=== PATIENT | female | born 1970 | race Caucasian/White ===

== ENCOUNTER 2024-08-15 09:30 | Outpatient (RCR) | payer OTHER, SELFPAY ==
--- NOTE | 2024-08-15 14:32 | PC.NURSE ---
Nick started PHP program today. At around 10:30 Dr. Flores Aguilar stated a patient is outside on the ground. I went outside and saw Riri on the ground surrounded by [facility] staff from another department of the hospital who stated they called an ambulance. Patient reports that she fell and injured her L arm and elbow. Fall was not witnessed by this tag writer. She denied hitting her head. Out patient response team was called. Security was present. Nick was advised not to get up until the ambulance arrived. Ambulance arrived and patient got on a stretcher and was sent to [facility] ER for further evaluation. Staff present included Dr Aguilar, Homer Palacios, Kristie Olmstead, [facility] staff person from Patient Experience, Chelo Bell Joshua Bettgenhauser, and the outpatient response team members.
--- NOTE | 2024-08-16 09:18 | HO.IOP ---
IOP Admin, Esther, informed the team that Nick left her a voicemail stating that she will not be returning to the program. IOP staff member contacted her on multiple occasions to gather the remainder of the discharge information but she did not answer her phone and her voicemail was full so we were unable to leave a message asking her to contact the program back.
== END 2024-08-15 23:59 | disposition home or self-care (01) ==
LOC: HO.IOP 09:30
PROVIDERS: Visit Provider Psychiatry & Neurology Psychiatry
DX: F33.2 Major depressive disorder, recurrent severe without psychotic features (principal); F41.1 Generalized anxiety disorder
CPT/HCPCS: 90791; S9480

== ENCOUNTER 2024-08-15 10:59 | Emergency (ER) | payer OTHER, SELFPAY ==
--- NOTE | ~2024-08-15 | XR_ITS ---
EXAMINATION: XR FOREARM, LEFT CLINICAL INFORMATION: Fall. Pain. COMPARISON: None available. TECHNIQUE: AP and lateral views of the left forearm were obtained. FINDINGS: The proximal forearm and elbow are not well seen. The fracture of the olecranon is better demonstrated on the left elbow radiographs obtained today. See separate report. No additional fracture of the mid or distal shaft of the radius or ulna or the visualized carpal bones. XR/XR forearm LT 2V IMPRESSION: Known fracture of the olecranon on the left elbow radiographs. No additional fracture of the middle distal shaft of the left forearm. Electronically signed by: Alli Nuñez MD 08/15/2024 03:01 PM EDT
--- NOTE | ~2024-08-15 | XR_ITS ---
EXAMINATION: XR HUMERUS, LEFT CLINICAL INFORMATION: Pain after falling COMPARISON: None available. TECHNIQUE: AP and lateral views of the left humerus. FINDINGS: Chip fracture off the distal humerus, best seen on the elbow radiograph, likely off the olecranon. The remainder of the humerus is intact. Moderate soft tissue swelling overlies the olecranon. XR/XR humerus LT IMPRESSION: Chip fracture of olecranon, with cephalad retraction likely due to fragment attachments of the triceps tendon. Electronically signed by: Faisal Urbina MD 08/15/2024 03:19 PM EDT
--- NOTE | ~2024-08-15 | XR_ITS ---
EXAMINATION: XR ELBOW, LEFT CLINICAL INFORMATION: Fall, elbow pain COMPARISON: None available. TECHNIQUE: Two views of the left elbow. FINDINGS: There is a comminuted and displaced fracture of the olecranon with associated soft tissue swelling and joint effusion. XR/XR elbow LT min 3V IMPRESSION: Comminuted and displaced fracture of the olecranon with associated soft tissue swelling and joint effusion. Electronically signed by: Lukasz Goldberg MD 08/15/2024 01:02 PM EDT
[2024-08-15 11:13] VITALS: BP 137/77; BP 138/74; PULSE 72; PULSE 90; RESP 18; TEMP 36.4; O2SAT 95; O2SAT 97; BMI 29.3
--- NOTE | 2024-08-15 12:03 | ED_ITS ---
HPI - Fall General Chief Complaint: Fall Stated Complaint: FALL,L ELBOW/RIB PAIN PER EMS Time Seen by Provider: 08/15/24 11:18 Source: patient Mode of arrival: ambulatory Limitations: no limitations History of Present Illness ED Provider: SHANNON MOHAN PA-C HPI Narrative: 54-year-old female with past medical history significant for diverticulitis (s/p colostomy and reversal in 2007) presents to the ED today via EMS as an outpatient response status post trip and fall on sidewalk. States that while walking to outpatient appointment, she tripped on a sidewalk crack and fell, landing directly on her left elbow. Denies head strike or LOC. Not on blood thinners. Outpatient response was called. Patient placed in make shift sling. Transported to ED for further evaluation. At present, her only complaint is left elbow pain. EMS stated patient was reporting left rib pain however on my questioning, she reports straining my ribs 1 week ago while lifting up a heavy object. Denies blunt injury to her ribs or worsening rib pain post fall. Denies headache, dizziness, N/V, numbness/tingling/weakness of the LUE. Related Data Previous Rx's ?Medication ?Instructions ?Recorded prednisone 20 mg tablet 40 mg (2 x 20 mg) PO DAILY 5 days 08/15/24 #10 tabs tramadol 50 mg tablet 50 mg PO Q8H PRN pain (scale score 08/15/24 7-10) #10 tabs Allergies Allergy/AdvReac Type Severity Reaction Status Date / Time acetaminophen [From Percocet] Allergy Mild ITCH ALL Verified 08/15/24 12:08 OVER codeine [Codeine] Allergy Mild VOMITING Verified 08/15/24 12:09 oxycodone [From Percocet] Allergy Mild ITCH ALL Verified 08/15/24 12:09 OVER Review of Systems Review of Systems: Constitutional: No fever, chills, fatigue, night sweats, weight changes ENT/Mouth: No ear pain, hearing loss, nasal congestion, sinus pain, rhinorrhea, sore throat Eyes: No eye pain, swelling, redness, vision changes, discharge Cardio: No chest pain, palpitations, KHOURY, orthopnea, peripheral edema Pulm: No SOB, cough, sputum, wheezing, dyspnea, hemoptysis GI: No nausea, vomiting, hematemesis, abdominal pain, diarrhea, constipation, hematochezia, melena : No irregular bleeding, dysuria, frequency, urgency, hesitancy, hematuria, flank pain, urinary flow changes, urinary incontinence or retention MSK: No back pain, neck pain, joint pain, myalgias, +left elbow pain Skin: No lesions, rashes Neuro: No weakness, numbness, paresthesias, LOC, dizziness, headache Psych: No anxiety/panic, depression, SI/HI, AH/VH All other systems reviewed and are negative. [facility] Past Medical History Attestation statement: The following information was validated with the patient. Source: old records reviewed and nursing notes reviewed Social History Social History Household Members: Children Advance Directives: No Advance Directives Information Provided: Yes Physical Exam Vital Signs: Vital Signs: Last Vital Signs Temp 97.8 F 08/15/24 14:56 Pulse 76 08/15/24 14:56 Resp 18 08/15/24 14:56 BP 139/56 L 08/15/24 14:56 Pulse Ox 92 08/15/24 14:56 O2 Del Method Room Air 08/15/24 14:56 BMI result Body Mass Index 29.3 vital signs stable General: Well appearing, in no acute distress. in makeshift sling on arrival to ED. Skin: Warm, dry, intact. No rashes or lesions. Head: Normocephalic, atraumatic. EENT: Hearing is intact b/l. Conjunctiva clear. PERRLA. EOM intact. Moist mucous membranes.? Neck: Supple without LAD. FROM. Trachea midline.? Cardiac: Chest wall symmetric. RRR. No reproducible tenderness to anterior, lateral posterior chest wall. No palpable deformity or crepitus. Lungs: Normal respiratory effort without accessory muscle use Back: No midline spinous or paraspinal tenderness. No step off deformity. Ext: +noted swelling to left elbow with limited ROM on extension. There is a small abrasion noted to posterior elbow. No active bleeding or discharge. Tender to palpation. Full ROM intact to left shoulder, left wrist and all digits on left hand. 2+ radial/ulnar pulse intact. Cap refill WNL. Machine Bunch Maker strength intact with pain at elbow. Neuro: AOx3. Normal speech. NV intact distally. Ambulating with steady gait. Psych: Appropriate mood and affect. Responds appropriately to questions. Course Course Course Narrative: 144 -- x-ray left elbow showing comminuted and displaced fracture of the olecranon with associated soft tissue swelling and joint effusion. I did reach out to orthopedic Hortencia DOWLING who recommends posterior long arm splint and outpatient follow-up. Patient's pain is well controlled with Dilaudid. I did place posterior long arm splint assisted by Jr RN and Bianca DIRECTOR RECREATION student. she is nv inact distally post-splinting. able to move all digits comfortably. cap refill <2 seconds. states the splint is comfortable. placed in sling for comfort. Awaiting x-ray reads for humerus and forearm however I do not appreciate any acute fracture. Plan to send patient home with tramadol and outpatient ortho follow-up. 1530 -- x-ray humerus showing chip fracture off distal humerus likely off of the olecranon, the remainder of the humerus is intact with moderate soft tissue swelling overlying the olecranon. X-ray left forearm without noted fracture. > tramadol sent to pharmacy for breakthrough pain. ortho referral provided. Patient has remained stable throughout ED visit today. Discussed worrisome signs and symptoms and when to return to the ED. All questions answered at this time. Patient is agreeable with disposition and stable for discharge. Medications Administered Discontinued Medications Generic Name Dose Route Start Last Admin Trade Name Israelq PRN Reason Stop Dose Admin Bacitracin 1 appl 08/15/24 14:13 08/15/24 14:23 Bacitracin Oint 0.9 Gm Packet TOPICAL 08/15/24 14:14 1 appl ONCE ONE Administration Protocol Hydromorphone HCl 0.5 mg 08/15/24 11:51 08/15/24 12:10 Hydromorphone Hcl 0.5 Mg/0.5 Ml Syringe IVPUSH 08/15/24 11:52 0.5 mg ONCE ONE Administration Protocol Hydromorphone HCl 0.5 mg 08/15/24 13:48 08/15/24 14:08 Hydromorphone Hcl 0.5 Mg/0.5 Ml Syringe IVPUSH 08/15/24 13:49 0.5 mg ONCE ONE Administration Protocol Ondansetron HCl 4 mg 08/15/24 11:52 08/15/24 12:09 Ondansetron Hcl 4 Mg/2 Ml Vial IVPUSH 08/15/24 11:53 4 mg ONCE ONE Administration Procedures Orthopedic Splinting/Casting Injury #1: Side: left Upper Extremity Injury Location: elbow Upper Extremity Immobilizer: sling/shoulder immobilizer and posterior splint Medical Decision Making Medical Decision Making MDM Narrative: 54-year-old female with past medical history significant for diverticulitis (s/p colostomy and reversal in 2007) presents to the ED today via EMS as an outpatient response status post trip and fall on sidewalk. Vital signs stable. she is nontoxic appearing and in NAD. on exam there is noted swelling to left elbow with limited ROM on extension. There is a small abrasion noted to posterior elbow. No active bleeding or discharge. Tender to palpation. Full ROM intact to left shoulder, left wrist and all digits on left hand. 2+ radial/ulnar pulse intact. Cap refill WNL. Machine Bunch Maker strength intact with pain at elbow. Differential diagnosis includes fracture, contusion, abrasion, dislocation. unlikely nv compromise, threat to limb, compartment syndrome. Plan for imaging, pain control, and re-evaluation. Differential Diagnosis Differential Diagnoses: The differential diagnosis associated with the presentation includes as above. Admission/Observation Not indicated Consult Healthcare Provider Management of the patient was discussed with: Sand Mixer (Josseline Burnett) Independent Interpretation I performed an independent interpretation of an: Plain X-Ray Interpretation: xr left elbow showing olecranon fracture, agree with radiologists's interpretation. Radiology Impression Discussion of test interpretation with radiology: I have reviewed the radiologist's reading. Radiologist Impression: EXAMINATION: XR ELBOW, LEFT CLINICAL INFORMATION: Fall, elbow pain COMPARISON: None available. TECHNIQUE: Two views of the left elbow. FINDINGS: There is a comminuted and displaced fracture of the olecranon with associated soft tissue swelling and joint effusion. XR/XR elbow LT min 3V IMPRESSION: Comminuted and displaced fracture of the olecranon with associated soft tissue swelling and joint effusion. Electronically signed by: Lukasz Goldberg MD 08/15/2024 01:02 PM EDT EXAMINATION: XR HUMERUS, LEFT CLINICAL INFORMATION: Pain after falling COMPARISON: None available. TECHNIQUE: AP and lateral views of the left humerus. FINDINGS: Chip fracture off the distal humerus, best seen on the elbow radiograph, likely off the olecranon. The remainder of the humerus is intact. Moderate soft tissue swelling overlies the olecranon. XR/XR humerus LT IMPRESSION: Chip fracture of olecranon, with cephalad retraction likely due to fragment attachments of the triceps tendon. Electronically signed by: Faisal Urbina MD 08/15/2024 03:19 PM [employer] EXAMINATION: XR FOREARM, LEFT CLINICAL INFORMATION: Fall. Pain. COMPARISON: None available. TECHNIQUE: AP and lateral views of the left forearm were obtained. FINDINGS: The proximal forearm and elbow are not well seen. The fracture of the olecranon is better demonstrated on the left elbow radiographs obtained today. See separate report. No additional fracture of the mid or distal shaft of the radius or ulna or the visualized carpal bones. XR/XR forearm LT 2V IMPRESSION: Known fracture of the olecranon on the left elbow radiographs. No additional fracture of the middle distal shaft of the left forearm. Electronically signed by: Alli Nuñez MD 08/15/2024 03:01 PM [employer] External Record Review External record reviewed: Inpatient record Prescription Management I considered prescription management with: Pain Medication (tramadol) and Other (prednisone) Social Determinants Patient?s care significantly limited by Social Determinants of Health including: Other Social Determinant of Health Critical Care Time Critical Care Time Critical Care Time: No Discharge Plan Discharge Clinical Impression: Closed olecranon fracture Qualifiers: Encounter type: initial encounter Laterality: left Qualified Code(s): S52.022A - Displaced fracture of olecranon process without intraarticular extension of left ulna, initial encounter for closed fracture Patient Disposition: Home, Self-Care Instructions: Arm Fracture in Adults (ED), Elbow Fracture (ED), How to Use a Sling (ED) Additional Instructions: You have been evaluated in the Emergency Department today for left elbow pain following a fall today. Your evaluation showed a fracture of your elbow. I have placed your elbow in a splint today. Avoid getting the splint wet. Keep the splint on and intact until you follow up with the orthopedic doctor. We have provided a sling for you to use while your elbow heals. Please rest, ice, and elevate your elbow. I recommend you take 600mg ibuprofen every 6 hours or tylenol 650mg every 6 hours as needed for pain. If needed, you can alternate these medications so that you take one medication every 3 hours. For example, at noon take ibuprofen, then at 3pm take tylenol, then at 6pm take ibuprofen.? Please take Tramadol as directed as necessary for breakthrough pain. Prednisone is a steroid that has been sent to your pharmacy to help with the swelling. Take this as prescribed. Please follow-up with an orthopedic surgeon in 1 week. You have been provided with a referral. Call them to make an appointment, they will not call you. Return to the Emergency Department if you experience worsening pain, numbness, tingling, change of color in your toes, or any other concerning symptoms. Prescriptions: New tramadol 50 mg tablet 50 mg PO Q8H PRN (Reason: pain (scale score 7-10)) Qty: 10 0RF prednisone 20 mg tablet 40 mg PO DAILY 5 Days Qty: 10 0RF Referrals: [facility] Orthopedic Surgeons [Provider Group] - 3 days (olecranon fracture, splinted.) Print Language: Kiswahili
[2024-08-15] MEDS: ondansetron HCL 4 MG/2 ML VIAL IVPUSH (12:09)
[2024-08-15] MEDS: HYDROmorphone HCl 0.5 MG/0.5 ML SYRINGE IVPUSH ×2 (12:10→14:08)
[2024-08-15] MEDS: Bacitracin Oint 0.9 GM PACKET 1 APPL TOPICAL (14:23)
[2024-08-15 14:56] VITALS: BP 139/56; PULSE 76; RESP 18; TEMP 36.6; O2SAT 92
[2024-08-15 15:37] VITALS: BP 139/56; PULSE 76; RESP 18; TEMP 36.6; O2SAT 92
== END 2024-08-15 16:05 | disposition home or self-care (01) ==
PROVIDERS: Emergency Provider Emergency Medicine Emergency Medical Services; PCP Physician Assistant
DX: S52.022A Displaced fracture of olecranon process without intraarticular extension of left ulna, initial encounter for closed fracture (principal); R07.81 Pleurodynia; H92.02 Otalgia, left ear; M79.602 Pain in left arm; W01.0XXA Fall on same level from slipping, tripping and stumbling without subsequent striking against object, initial encounter; Y93.01 Activity, walking, marching and hiking; Y92.480 Sidewalk as the place of occurrence of the external cause; Y99.8 Other external cause status
CPT/HCPCS: 29105; 73060; 73080; 73090; 96374; 96375; 96376; 99282; 99284; J1171; J2405